=== PATIENT | female | born 1985 | race Caucasian/White ===

== ENCOUNTER → 2018-11-29 12:08 | Outpatient (CLI) | payer BC, SELFPAY ==
[2018-12-05 15:12] LABS: AFP, Serum 81.5 ng/mL; Calc Gestational Age 18.6; Cigarette Smoker N; Donated Egg NOT GIVEN; Donor Egg Age NOT GIVEN; Estriol, Free 2.46 ng/mL; Inhibin A, Dimeric 276 pg/mL; Maternal Weight 234 lbs; Number of Fetuses 2; Previous Pregnancy Down Syndro NOT GIVEN; Risk of Open Neural Tube Defec UNAVAILABLE; hCG, MoM 2.75; hCG, Serum 48.2 IU/mL
== END ==
PROVIDERS: Visit Provider Specialist
DX: O30.049 Twin pregnancy, dichorionic/diamniotic, unspecified trimester (principal); Z3A.18 18 weeks gestation of pregnancy
CPT/HCPCS: 36415; 82105; 82677; 84702; 86336